=== PATIENT | female | born 1940 | race Two or more races ===

== ENCOUNTER 2024-11-11 14:45 | Outpatient (CLI) | payer OTHER | END 2024-11-11 14:50 | disposition home or self-care (01) | LOC: RAD 14:45 | PROVIDERS: ATTEND Physical Medicine & Rehabilitation Pain Medicine | DX: M25.552 Pain in left hip (principal); S32.000A Wedge compression fracture of unspecified lumbar vertebra, initial encounter for closed fracture; X58.XXXA Exposure to other specified factors, initial encounter; Y93.9 Activity, unspecified; Y92.9 Unspecified place or not applicable; Y99.9 Unspecified external cause status ==

== ENCOUNTER 2025-01-14 11:30 | Outpatient (CLI) | payer OTHER ==
[~2025-01-14 11:30] MED LIST: PREGABALIN25 MG PO; VOLTAREN ARTHRI20 GM TOP
== END 2025-01-14 11:32 | disposition home or self-care (01) ==
LOC: SONOGRAMA 11:30
DX: M25.551 Pain in right hip (principal)